=== PATIENT | female | born 1990 | race Asian ===

== ENCOUNTER 2019-03-14 07:00 | Day surgery (SDC) | payer OTHER ==
[2019-03-14] VITALS (15 sets, daily range): BP systolic 80–104; BP diastolic 47–78; PULSE 56–74; RESP 18–32; Ht 157.5 cm; Wt 48.0 kg
[~2019-03-14] VITALS: Ht 157.5 cm; Wt 48.0 kg
[~2019-03-14 07:00] MED LIST: CEFAZOLIN 1 GM INJ ONE; DEXAMETHASONE 4 MG/ML 5 ML INJ ONE; LIDOCAINE 2% (SDV) 5 ML INJ ONE; PROPOFOL 200 MG INJ ONE
[2019-03-14] MEDS ORDERED: ONDANSETRON 4 MG INJ IV PRN (09:00)
[2019-03-14] MEDS ORDERED: METOCLOPRAMIDE 10 MG INJ IV PRN (09:00)
[2019-03-14] MEDS ORDERED: OXYCODONE/ACETAMINOPHEN (5/325) TAB PO PRN ×2 (09:00)
[2019-03-14] MEDS ORDERED: FENTAnyl 50 MCG/ML VIAL IV PRN ×2 (09:00)
[2019-03-14] MEDS ORDERED: HYDROmorphONE 1 MG/5 ML IV SYRINGE IV PRN ×2 (09:00)
[2019-03-14] MEDS ORDERED: MIDAZOLAM 1 MG/ML 2 ML INJ ONE (09:14)
[2019-03-14] MEDS ORDERED: FENTAnyl 50 MCG/ML VIAL ONE (09:19)
[2019-03-14] MEDS ORDERED: LIDOCAINE 1% (MPF) 30 ML INJ ONE (09:30)
[2019-03-14] MEDS ORDERED: ONDANSETRON 4 MG INJ ONE (09:41)
== END 2019-03-14 11:36 | disposition home or self-care (01) ==
LOC: SDS 07:00
PROVIDERS: ATTEND Surgery
DX: D24.1 Benign neoplasm of right breast (principal); Q83.3 Accessory nipple
CPT/HCPCS: 19120; 88305; J2250; J2405; J3010; Z7512; Z7610; J0690; J1100